=== PATIENT | female | born 1995 | race Caucasian/White ===

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

== ENCOUNTER 2017-01-25 22:57 | Emergency (ER) | payer OTHER ==
[~2017-01-25] VITALS: Ht 149.9 cm; Wt 92.1 kg
[~2017-01-25 22:57] MED LIST changes: -BUSP1TAB46 PO; +ETON1IMP2 INTRAD; -NORPLANT
[2017-01-25 23:00] VITALS: TEMP 37.1; Ht 149.9 cm; Wt 92.1 kg
--- NOTE | 2017-01-26 00:12 | EMERGENCY ROOM VISIT NOTE ---
ED Visit Note First contact with patient: 23:03 CHIEF COMPLAINT: Knee pain HISTORY OF PRESENT ILLNESS: This 22-ptbs-tfa-female patient presents to the emergency department ambulatory complaining of pain in the right knee/leg. The patient states that she slipped and fell while at work and sustained an injury to the right leg. The patient denies any other injuries besides their knee. The patient denies swelling or bruising. There is pain along the outside of the leg. They rate the pain as dull and 4/10. The patient states they are able to walk on it. No numbness or tingling. No previous injuries to this knee. No ankle, foot or hip pain. REVIEW OF SYSTEMS: A 6 system review of systems was completed with positives and pertinent negatives listed in the HPI. ALLERGIES: Gluten, lactose MEDICATIONS: Nexplanon PMH: No significant past medical history. SOCIAL HISTORY: Patient is a [employer] student and lives with roommates. PHYSICAL EXAM: Vital Signs: Reviewed Nurse's notes, vital signs stable. GENERAL : This is a 21-year-old female, no acute distress, but appears in pain, well- developed, well-nourished. MENTAL STATUS: Alert, oriented to person place and time, and cooperative. MUSCULOSKELETAL: There is vague tenderness to the lateral aspect of the right knee and proximal tibia/fibula. There is no ecchymosis or swelling. No deformities. Full range of motion of the right lower extremity. The foot and toes are warm and well-perfused. Dorsalis pedis pulse 2+. Sensation to pain and light touch is intact. Capillary refill less than 2 seconds. RADIOGRAPHIC FINDINGS: R KNEE 3 VIEWS, R TIBIA/FIBULA 2 VIEWS ROUTINE FINDINGS: No fracture or dislocation. No knee effusion. No radiopaque foreign bodies. IMPRESSION: No fracture or dislocation within the right knee or right lower leg. EMERGENCY DEPARTMENT COURSE: I examined the patient. X-rays of the right knee and tibia/fibular were performed and did not show any acute fractures. Findings were discussed with the patient. Conservative measures were discussed. She verbalized understanding of my assessment and treatment plan was discharged home in good condition. DIAGNOSIS: Right leg injury Problem List Medical Problems: (1) UTI (urinary tract infection) Status: Resolved Current/Historical Medications Scheduled Etonogestrel (Nexplanon), 68 MG INTRAD UD Allergies Coded Allergies: Gluten (Verified Allergy, Severe, GI SYMPTOMS, 01/26/17) Lactose. (Verified Allergy, Unknown, GI SYMPTOMS, 01/26/17) Vital Signs Date Time Temp Pulse Resp B/P (MAP) Pulse Ox O2 Delivery O2 Flow Rate FiO2 01/26/17 00:21 108 18 139/74 97 01/25/17 23:00 37.1 116 18 136/87 98 Room Air Departure Information Impression Primary Impression: Contusion of right leg Dispostion Home / Self-Care Condition GOOD Referrals Luther Beard M.D. (PCP) Patient Instructions [facility] Additional Instructions You have been treated in the Emergency Department for Knee Pain. X-rays did not show any fractures. For pain control, you can use the following [id number] medicines (if >12 yo): - Regular strength (325mg/tab) Tylenol (acetaminophen) 2 tabs every 4-6 hours as needed. Do not exceed 12 tablets in a 24 hour period. Avoid taking more than 4 grams (4000 mg) of Tylenol per day. This includes any other sources of acetaminophen you may take on a regular basis. - Regular strength (200 mg/tab) Advil (ibuprofen) 2-3 tabs every 4-6 hours as needed. Do not exceed a dose of 3200 mg per day. If this is a recent injury (<24 hrs), ice can be applied to the area of pain for the first 3 days to help decrease pain and inflammation. Ice massages can be performed by freezing water in a paper cup, peeling back the cup to expose the ice and then massaging over the affected area. Follow-up with your primary care provider if there is persistent pain or difficulty walking. Return to the Emergency Department if your current symptoms worsen despite treatment course outlined above. Problem Qualifiers Primary Impression: Contusion of right leg Encounter type: initial encounter Qualified Codes: S80.11XA - Contusion of right lower leg, initial encounter
[2017-01-26 00:21] VITALS: BP 139/74; PULSE 108; O2SAT 97
--- NOTE | 2017-01-26 07:12 | DIAGNOSTIC IMAGING REPORT ---
R KNEE 3 VIEWS, R TIBIA/FIBULA 2 VIEWS ROUTINE CLINICAL HISTORY: right knee/leg pain, fall COMPARISON STUDY: None. FINDINGS: No fracture or dislocation. No knee effusion. No radiopaque foreign bodies. IMPRESSION: No fracture or dislocation within the right knee or right lower leg. Electronically signed by: Heriberto Valenzuela M.D. 01/26/2017 7:10 AM Dictated Date/Time: 01/26/2017 7:09 AM
== END 2017-01-26 00:22 | disposition home or self-care (01) ==
LOC: C.EDB 22:57
DX: S80.11XA Contusion of right lower leg, initial encounter (principal); W19.XXXA Unspecified fall, initial encounter

== ENCOUNTER 2021-11-15 23:39 | Observation (INO) ==
[2021-11-15] MEDS ORDERED: SODIUM CHLORIDE 0.9% 1000ML 1,000 ML IV SCH (23:45)
[2021-11-15] MEDS ORDERED: ONDANSETRON INJ 2 MG/ML 2 ML VIAL IV STA (23:58)
[2021-11-15] MEDS ORDERED: MoRPHine SULFATE 4 MG/ML 1 ML CARP\\VIAL IV PRN (23:58)
[2021-11-16] MEDS ORDERED: ACETAMINOPHEN 1,000 MG/100 ML VIAL IV STA (00:26)
[2021-11-16 00:50] LABS: Basophils # (auto) 0.03 K/uL (0-0.2); Basophils % (auto) 0.2 %; Eosinophils # (auto) 0.04 K/uL (0-0.50); Eosinophils % (auto) 0.3 %; Hematocrit (blood only) 34.1 % (34.1-44.9); Hemoglobin 11.8 g/dl (12.0-16.0); Immature Granulocytes # (auto) 0.07 K/uL (0.00-0.02); Immature Granulocytes % (auto) 0.5 %; Lymphocytes # (auto) 2.05 K/uL (1.2-3.4); Lymphocytes % (auto) 14.9 %; Mean Corpuscular Hemoglobin 30.5 pg (25.0-34.0); Mean Corpuscular Hgb Conc 34.6 g/dL (32.0-36.0); Mean Corpuscular Volume 88.1 fL (80.0-100.0); Mean Platelet Volume 11.3 fL (9.4-12.3); Monocytes % (auto) 4.4 %; Neutrophils # (auto) 10.97 K/uL (1.4-6.5); Neutrophils % (auto) 79.7 %; Platelet Count 160 K/uL (130-400); RDW Coefficient of Variation 13.5 % (11.5-14.5); RDW Standard Deviation 43.3 fL (36.4-46.3); Red Blood Count 3.87 M/uL (3.93-5.22); White Blood Count 13.76 K/ul (4.8-10.8)
[2021-11-16 00:53] LABS: Appearance Urine Clear (Clear); Bacteria Urine Automated 1+ (Negative); Bilirubin Urine Negative (Negative); Blood Urine Negative (Negative); Color Urine Yellow; Epithelial Cell Urine Auto >30 /lpf (0-5); Glucose Urine UA Negative (Negative); Ketones Urine Negative (Negative); Leukocyte Esterase Urine Negative (Negative); Nitrite Urine Negative (Negative); Protein Urine 3+ (Negative); RBC Urine Automated 0-4 /hpf (0-4); Specific Gravity Urine 1.015 (1.000-1.030); Urobilinogen Urine Negative (Negative); pH Urine 6.5 (4.5-7.5)
[2021-11-16 01:18] LABS: Alanine Aminotransferase 88 U/L (7-52); Albumin Level 3.4 gm/dl (3.4-5.0); Alkaline Phosphatase 63 U/L (34-104); Anion Gap 11 (3-11); Aspartate Aminotransferase 91 U/L (13-39); BUN Creatinine Ratio 14.3 (10-20); Bilirubin,Total 0.3 mg/dl (0.2-1.0); Blood Urea Nitrogen 7 mg/dl (6-23); Calcium 9.2 mg/dl (8.5-10.1); Carbon Dioxide 21 mmol/L (21-32); Chloride 105 mmol/L (98-107); Creatinine Clr Calc Pharmacy 190.9 ml/min; Est GFR (African American) > 150.0 ml/min; Est GFR (Non-African American) 136.4 ml/min; Globulin 3.4 gm/dl (2.5-4.0); Glucose 111 mg/dl (70-99(Fasting)); Lipase 27 U/L (11-82); Potassium 3.7 mmol/L (3.5-5.1); Sodium 137 mmol/L (136-145); Total Protein 6.8 gm/dl (6.0-8.3)
[2021-11-16 01:19] LABS: Troponin I High Sensitivity 5.8 pg/ml (0-14)
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
[2021-11-16 04:08] LABS: Creatinine Urine Random 110.2 mg/dl; Protein Creatinine Ratio Urine 1.7 (0-0.2); Total Protein Urine Random 185.5 mg/dl (0-11.9)
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
[2021-11-16] MEDS ORDERED: LACTATED RINGER'S 1,000 ML IV PRN (04:17)
[2021-11-16] MEDS ORDERED: ACETAMINOPHEN 325 MG TAB PO PRN (06:23)
--- NOTE | 2021-11-16 07:00 | Ultrasound Report ---
ULTRASOUND RIGHT UPPER QUADRANT ABDOMEN CLINICAL HISTORY: Right upper quadrant abdominal pain. . COMPARISON STUDY: Abdominal CT dated 05/03/2019. TECHNIQUE: Real-time, grayscale, and color flow sonography of the right upper quadrant of the abdomen was performed. Images are reviewed in the transverse and longitudinal planes. FINDINGS: Liver: The liver is top normal in size and normal in echotexture. There is no intrahepatic biliary du ctal dilatation. The main portal vein is patent. Gallbladder: There are shadowing calcified gallstone. There is no gallbladder wall thickening or efrain cholecystic fluid. A sonographic Lopes's sign is reportedly absent. The common bile duct measures up to 0.4 cm in diameter. Pancreas: Visualized portions of the pancreatic head and body are normal in appearance. The splenic v ein is patent. Right kidney: Survey images of the right kidney demonstrate normal size and echotexture. There is no hydronephrosis. Ascites: None. IMPRESSION: Cholelithiasis without sonographic evidence of acute cholecystitis. ACT 112: Negative or not required by law. Electronically signed by: Burton Martinez M.D. 11/16/2021 6:58 AM
--- NOTE | 2021-11-16 07:32 | Ultrasound Report ---
US OB limited CLINICAL HISTORY: abd pain in 29 week . COMPARISON: None. TECHNIQUE: Obstetric Ultrasound greater than 14 weeks. Transabdominal sonogram of the pelvis is perf ormed FINDINGS: The study is limited by the patient's body habitus. presentation: Breech movement: Present. heart rate (bpm): 157 Amniotic fluid: Appears within normal limits. ANAM: 13.4 cm Placenta: Appears normal without evidence of previa or abruption. Is anterior and lateral in location . Uterus and adnexa: Gravid with a single intrauterine . Measurements: Cervical Length: 2.7 cm and close Femur length (FL): 4.77 cm Estimated gestational age (EGA): 26 weeks 0 days Estimated due date (ANDRE): 01/27/2022 IMPRESSION: Single live intrauterine . Breech presentation. ACT 112: Negative or not required by law. Electronically signed by: Tarun Cobian M.D. 11/16/2021 7:30 AM
[2021-11-16] MEDS ORDERED: BETAMETH SOD PHOS/ACETATE IA 6 MG/ML IM STA (08:27)
[2021-11-16 09:03] LABS: Basophils # (auto) 0.04 K/uL (0-0.2); Basophils % (auto) 0.4 %; Eosinophils # (auto) 0.05 K/uL (0-0.50); Eosinophils % (auto) 0.5 %; Hematocrit (blood only) 38.1 % (34.1-44.9); Hemoglobin 12.9 g/dl (12.0-16.0); Immature Granulocytes # (auto) 0.03 K/uL (0.00-0.02); Immature Granulocytes % (auto) 0.3 %; Lymphocytes % (auto) 18.5 %; Mean Corpuscular Hemoglobin 30.1 pg (25.0-34.0); Mean Corpuscular Hgb Conc 33.9 g/dL (32.0-36.0); Mean Corpuscular Volume 88.8 fL (80.0-100.0); Mean Platelet Volume 11.3 fL (9.4-12.3); Monocytes # (auto) 0.61 K/uL (0.24-0.82); Monocytes % (auto) 5.6 %; Neutrophils # (auto) 8.11 K/uL (1.4-6.5); Neutrophils % (auto) 74.7 %; Platelet Count 163 K/uL (130-400); RDW Coefficient of Variation 13.7 % (11.5-14.5); RDW Standard Deviation 44.6 fL (36.4-46.3); Red Blood Count 4.29 M/uL (3.93-5.22); White Blood Count 10.84 K/ul (4.8-10.8)
[2021-11-16] MEDS ORDERED: MAG SULFATE 6GM BOLUS FROM BAG IV ONE (09:09)
[2021-11-16 09:18] LABS: INR 0.9 (0.9-1.1); Partial Thromboplastin Time 28.2 Seconds (21.0-31.0); Prothrombin Time 10.1 Seconds (9.0-12.0)
[2021-11-16 09:28] LABS: Alanine Aminotransferase 90 U/L (7-52); Albumin Globulin Ratio 1.1 (0.9-2); Albumin Level 3.4 gm/dl (3.4-5.0); Alkaline Phosphatase 62 U/L (34-104); Anion Gap 9 (3-11); Aspartate Aminotransferase 84 U/L (13-39); BUN Creatinine Ratio 13.3 (10-20); Bilirubin,Total 0.4 mg/dl (0.2-1.0); Blood Urea Nitrogen 6 mg/dl (6-23); Calcium 8.9 mg/dl (8.5-10.1); Carbon Dioxide 23 mmol/L (21-32); Chloride 105 mmol/L (98-107); Creatinine Clr Calc Pharmacy 208.1 ml/min; Est GFR (African American) > 150.0 ml/min; Est GFR (Non-African American) 140.2 ml/min; Globulin 3.2 gm/dl (2.5-4.0); Glucose 97 mg/dl (70-99(Fasting)); Potassium 3.8 mmol/L (3.5-5.1); Sodium 137 mmol/L (136-145); Total Protein 6.6 gm/dl (6.0-8.3); Uric Acid 6.7 mg/dl (2.6-7.2)
[2021-11-16] MEDS: MAGNESIUM SULFATE / WTR 40 GM/1,000 ML BAG IV SCH ×2 (09:40→10:19)
--- NOTE | 2021-11-16 09:45 | Labor Progress Brief Note ---
Date of Service November 16, 2021 Subjective Reason For Note: Routine Evaluation Patient seen and re-evaluated by me Review of Systems patient still complains of persistent headache and RUQ and epigastric pain no visual disturbances reported Assessment & Plan (1) Epigastric pain during , antepartum: Plan: Will transfer to [facility] Discussed with Dr. Land and team at [facility] Steroids given Magnesium started (2) Pre-eclampsia, severe, third trimester: Admission and Anticipated Discharge Date Admission Date: November 16, 2021 Physical Exam Constitutional: WD/WN, vitals as above + obese Eyes: PERRL, conjunctivae normal, anicteric sclerae Neck: trachea midline, no thyromegaly Respiratory: normal respiratory effort, lungs clear to auscultation Cardiovascular: RRR, no murmur, no edema Gastrointestinal (Abdomen): Inspection/Auscultation: abdomen normal to inspection and + abdomen distended pain noted in RUQ and epigastric region Musculoskeletal: minimal lower extremity edema neg Laina's Skin: no rashes, warm and dry Neurologic: patellar DTR's 2+ bilat, sensation intact neg clonus Psychiatric: A+Ox3, euthymic affect Genitourinary: OB Exam Monitor Tracing: + external FHT monitor used, + external uterine monitor used, + category I and + normal FHT variability Results & Data ([facility]) Vital Signs (Past 12 Hours) Vital Signs Temp Pulse Pulse Resp BP BP Pulse Ox 11/16/21 05:58 36.7 C 20 11/16/21 09:33 84 137/61 11/16/21 08:57 85 148/81 H 11/16/21 08:27 48 L 131/69 11/16/21 07:57 49 L 134/81 11/16/21 07:27 68 122/76 11/16/21 07:14 36.8 C 48 L 20 143/77 H 11/16/21 06:57 81 151/77 H 11/16/21 06:27 50 L 121/65 11/16/21 05:56 70 138/68 11/16/21 05:46 18 130/69 96 11/16/21 03:23 60 18 135/107 H 98 11/16/21 02:32 75 21 151/86 H 96 11/15/21 23:43 36.8 C 66 18 157/84 H 98 O2 Del Method 11/16/21 05:58 11/16/21 09:33 11/16/21 08:57 11/16/21 08:27 11/16/21 07:57 11/16/21 07:27 11/16/21 07:14 11/16/21 06:57 11/16/21 06:27 11/16/21 05:56 11/16/21 05:46 Room Air 11/16/21 03:23 Room Air 11/16/21 02:32 Room Air 11/15/21 23:43 Room Air Laboratory Results Laboratory Results - last 72 hr 11/16/21 11/16/21 11/16/21 00:36 00:36 00:36 WBC 13.76 H RBC 3.87 L Hgb 11.8 L Hct 34.1 MCV 88.1 MCH 30.5 MCHC 34.6 RDW Std Deviation 43.3 RDW Coeff of Batsheva 13.5 Plt Count 160 MPV 11.3 Immature Gran % (Auto) 0.5 Neut % (Auto) 79.7 Lymph % (Auto) 14.9 [place] % (Auto) 4.4 Eos % (Auto) 0.3 Baso % (Auto) 0.2 Neut # (Auto) 10.97 H Lymph # (Auto) 2.05 [place] # (Auto) 0.60 Eos # (Auto) 0.04 Baso # (Auto) 0.03 Immature Gran # (Auto) 0.07 H PT INR APTT PTT Ratio Sodium 137 Potassium 3.7 Chloride 105 Carbon Dioxide 21 Anion Gap 11 BUN 7 Creatinine 0.49 L Est Cr Clr Drug Dosing 190.9 Est GFR ( Amer) > 150.0 Est GFR (Non-Af Amer) 136.4 BUN/Creatinine Ratio 14.3 Glucose 111 H Uric Acid Calcium 9.2 Total Bilirubin 0.3 Direct Bilirubin AST 91 H ALT 88 H Alkaline Phosphatase 63 Lactate Dehydrogenase Troponin I High Sens 5.8 Total Protein 6.8 Albumin 3.4 Globulin 3.4 Albumin/Globulin Ratio 1.0 Lipase 27 Urine Color Urine Appearance Urine pH Ur Specific [place] Urine Protein Urine Glucose (UA) Urine Ketones Urine Blood Urine Nitrite Urine Bilirubin Urine Urobilinogen Ur Leukocyte Esterase Urine WBC (Auto) Urine RBC (Auto) U Hyaline Cast (Auto) U Epithel Cells (Auto) Urine Bacteria (Auto) Ur Random Creatinine U Random Total Protein Protein/Creatinin Ratio Monoscreen Negative SARS-CoV-2, RNA, NAAT 11/16/21 11/16/21 11/16/21 00:36 03:20 08:37 WBC 10.84 H RBC 4.29 Hgb 12.9 Hct 38.1 MCV 88.8 MCH 30.1 MCHC 33.9 RDW Std Deviation 44.6 RDW Coeff of B[place]heva 13.7 Plt Count 163 MPV 11.3 Immature Gran % (Auto) 0.3 Neut % (Auto) 74.7 Lymph % (Auto) 18.5 [place] % (Auto) 5.6 Eos % (Auto) 0.5 Baso % (Auto) 0.4 Neut # (Auto) 8.11 H Lymph # (Auto) 2.00 [place] # (Auto) 0.61 Eos # (Auto) 0.05 Baso # (Auto) 0.04 Immature Gran # (Auto) 0.03 H PT INR APTT PTT Ratio Sodium Potassium Chloride Carbon Dioxide Anion Gap BUN Creatinine Est Cr Clr Drug Dosing Est GFR ( Amer) Est GFR (Non-Af Amer) BUN/Creatinine Ratio Glucose Uric Acid Calcium Total Bilirubin Direct Bilirubin AST ALT Alkaline Phosphatase Lactate Dehydrogenase 244 Troponin I High Sens Total Protein Albumin Globulin Albumin/Globulin Ratio Lipase Urine Color Urine Appearance Urine pH Ur Specific [place] Urine Protein Urine Glucose (UA) Urine Ketones Urine Blood Urine Nitrite Urine Bilirubin Urine Urobilinogen Ur Leukocyte Esterase Urine WBC (Auto) Urine RBC (Auto) U Hyaline Cast (Auto) U Epithel Cells (Auto) Urine Bacteria (Auto) Ur Random Creatinine U Random Total Protein Protein/Creatinin Ratio Monoscreen SARS-CoV-2, RNA, NAAT NEGATIVE 11/16/21 11/16/21 11/16/21 08:37 08:37 08:37 WBC RBC Hgb Hct MCV MCH MCHC RDW Std Deviation RDW Coeff of B[place]heva Plt Count MPV Immature Gran % (Auto) Neut % (Auto) Lymph % (Auto) [place] % (Auto) Eos % (Auto) Baso % (Auto) Neut # (Auto) Lymph # (Auto) [place] # (Auto) Eos # (Auto) Baso # (Auto) Immature Gran # (Auto) PT 10.1 INR 0.9 APTT 28.2 PTT Ratio 1.0 Sodium 137 Potassium 3.8 Chloride 105 Carbon Dioxide 23 Anion Gap 9 BUN 6 Creatinine 0.45 L Est Cr Clr Drug Dosing 208.1 Est GFR ( Amer) > 150.0 Est GFR (Non-Af Amer) 140.2 BUN/Creatinine Ratio 13.3 Glucose 97 Uric Acid 6.7 Calcium 8.9 Total Bilirubin 0.4 Direct Bilirubin 0.0 AST 84 H ALT 90 H Alkaline Phosphatase 62 Lactate Dehydrogenase 205 Troponin I High Sens Total Protein 6.6 Albumin 3.4 Globulin 3.2 Albumin/Globulin Ratio 1.1 Lipase Urine Color Urine Appearance Urine pH Ur Specific [place] Urine Protein Urine Glucose (UA) Urine Ketones Urine Blood Urine Nitrite Urine Bilirubin Urine Urobilinogen Ur Leukocyte Esterase Urine WBC (Auto) Urine RBC (Auto) U Hyaline Cast (Auto) U Epithel Cells (Auto) Urine Bacteria (Auto) Ur Random Creatinine U Random Total Protein Protein/Creatinin Ratio Monoscreen SARS-CoV-2, RNA, NAAT 11/16/21 11/16/21 Unknown Unknown WBC RBC Hgb Hct MCV MCH MCHC RDW Std Deviation RDW Coeff of B[place]heva Plt Count MPV Immature Gran % (Auto) Neut % (Auto) Lymph % (Auto) [place] % (Auto) Eos % (Auto) Baso % (Auto) Neut # (Auto) Lymph # (Auto) [place] # (Auto) Eos # (Auto) Baso # (Auto) Immature Gran # (Auto) PT INR APTT PTT Ratio Sodium Potassium Chloride Carbon Dioxide Anion Gap BUN Creatinine Est Cr Clr Drug Dosing Est GFR ( Amer) Est GFR (Non-Af Amer) BUN/Creatinine Ratio Glucose Uric Acid Calcium Total Bilirubin Direct Bilirubin AST ALT Alkaline Phosphatase Lactate Dehydrogenase Troponin I High Sens Total Protein Albumin Globulin Albumin/Globulin Ratio Lipase Urine Color Yellow Urine Appearance Clear Urine pH 6.5 Ur Specific [place] 1.015 Urine Protein 3+ H Urine Glucose (UA) Negative Urine Ketones Negative Urine Blood Negative Urine Nitrite Negative Urine Bilirubin Negative Urine Urobilinogen Negative Ur Leukocyte Esterase Negative Urine WBC (Auto) 10-30 H Urine RBC (Auto) 0-4 U Hyaline Cast (Auto) 1-5 U Epithel Cells (Auto) >30 H Urine Bacteria (Auto) 1+ H Ur Random Creatinine 110.2 U Random Total Protein 185.5 H Protein/Creatinin Ratio 1.7 H Monoscreen SARS-CoV-2, RNA, NAAT
[2021-11-16] MEDS ORDERED: LIDOCAINE 2% JELLY 5 ML TUBE ONE (10:11)
[2021-11-16 10:15] LABS: Creatinine Urine Random 129.3 mg/dl; Total Protein Urine Random 127.1 mg/dl (0-11.9)
--- NOTE | 2021-11-16 12:32 | Electrocardiogram Report ---
Test Reason : Blood Pressure : / mmHG Vent. Rate : 067 BPM Atrial Rate : 067 BPM P-R Int : 108 ms QRS Dur : 072 ms QT Int : 372 ms P-R-T Axes : 060 032 016 degrees QTc Int : 393 ms Poor data quality, interpretation may be adversely affected Sinus rhythm with frequent PACs Otherwise normal ECG When compared with ECG of 03-MAY-2019 11:40, No significant change was found Confirmed by Esdras Marie ([id number]) on 11/16/2021 12:32:33 PM Referred By: REFERRED SELF Confirmed By:Sacha Marie
[2021-11-16] MEDS ORDERED: NITROFURANTOIN MONOHYDRATE 100 MG CAP PO SCH (21:00)
[2021-11-17] MEDS ORDERED: PRENATAL VITAMIN 1 TAB PO SCH (09:00)
[2021-11-17 15:38] LABS: HBSAG NON-REACTIVE (NON-REACTIVE); Haptoglobin 159 mg/dL (43-212); Hepatitis A Antibody IgM NON-REACTIVE (NON-REACTIVE); Hepatitis B Core Antibody IgM NON-REACTIVE (NON-REACTIVE)
--- NOTE | 2021-11-23 22:45 | Discharge Summary (DS) ---
REASON FOR ADMISSION AND HOSPITAL COURSE: The patient was admitted on 11/16/2021, to [facility]. She is a 26-year-old , who came into the ER complaining of epigastric pain. Upo n arrival, her blood pressure was monitored and her blood pressure was elevated. She denied having a ny contractions, vaginal bleeding, leakage of fluid. She was here several days ago with urinary comp laints and was sent home with a prescription for an antibiotic. She has a medical history of anxiety and depression, celiac disease, gestational diabetes, which is diet controlled. Otherwise, no other significant medical history. The patient was sent to Labor and Delivery after she had been complain ing of upper epigastric pain, which she rated as 7/10. There was no shortness of breath. The patien t was admitted for observation. She had labs performed. Her urine protein-creatinine ratio was elev ated. She had an initial reading on 11/16/2021, at 1.0, followed by a second, which was 1.7, so almo st double. She had 3+ protein. Her liver functions were elevated. Her platelet count and coags wer e normal. The patient fit the criteria for preeclampsia with severe features with right upper quadra nt pain, elevated liver functions, and was transferred to [facility]. Consult was evelyne corral with the team at [facility], and they agreed to accept her for transfer. The patient w as started on betamethasone for lung maturity. She was given a loading dose of magnesium at 6 gm per hour and was continued on a 2 gm per hour drip. The patient was stable on discharge at transf er with transfer via ambulance. Job ID: [id number]
== END 2021-11-16 13:50 | disposition short-term general hospital (02) | DRG 833 ==
LOC: ED 23:39 → 4S1 23:39 → INTOOBSV 11-16 04:18 → OBSVTOIN 11-16 04:18 → 4S1 11-16 05:46
DX: Z91.018 Allergy to other foods; K90.0 Celiac disease; R51.9 Headache, unspecified; O99.613 Diseases of the digestive system complicating pregnancy, third trimester; O14.13 Severe pre-eclampsia, third trimester; R80.9 Proteinuria, unspecified; Z79.899 Other long term (current) drug therapy; Z91.011 Allergy to milk products; Z3A.29 29 weeks gestation of pregnancy